=== PATIENT | male | born 1980 | race Caucasian/White ===

== ENCOUNTER 2019-09-28 12:07 | Emergency (ER) | payer BC, SELFPAY ==
[2019-09-28 12:15] VITALS: BP 154/93; PULSE 111; RESP 16; TEMP 37.9; O2SAT 99
--- NOTE | 2019-09-28 12:26 | ED.GENADULT ---
HPI - General Adult General Chief complaint: Ear Stated complaint: Fever/chills/cough/congestion Time Seen by Provider: 09/28/19 12:26 Source: patient and RN notes reviewed History of Present Illness HPI narrative: Patient is a 39-year-old male that presents the urgent care with complaints of fever, chills, nonproductive cough, sinus congestion. Patient states that it started yesterday and he has been using ibuprofen for the fever and body aches. No other acute complaints. No acute distress noted. Patient read the plan of care. Related Data Home Medications Medication Instructions Recorded Confirmed lisinopril 09/28/19 Allergies Allergy/AdvReac Type Severity Reaction Status Date / Time No Known Allergies Allergy Verified 09/28/19 12:15 Review of Systems Review of Systems: Narrative: CONSTITUTIONAL: Reports a fever, chills EYES: Denies visual changes, redness, or discharge. ENT: Reports of sinus congestion CARDIOVASCULAR: Denies chest pain, palpitations, or edema. RESPIRATORY: Reports of cough without wheezing or difficulty breathing GASTROINTESTINAL: Denies abdominal pain, nausea, vomiting, or diarrhea. GENITOURINARY: Denies dysuria or hematuria. SKIN: Denies rash or itching. MUSCULOSKELETAL: Denies back pain, joint pain; reports of body aches NEUROLOGIC: Denies headache, numbness, or weakness. All other systems reviewed are negative, except as documented in HPI. [facility] Family History Family History (Updated 01/23/19 @ 07:45 by DOCTOR UNKNOWN) Father Hypertension Patient's father is in good health Social History Social History Smoking status: Never smoker Alcohol intake: current Comments At the time of my signature, I reviewed and agree with the nursing past medical, surgical, social, and family history. There is no relevant family history pertinent to the patient complaint. Exam Narrative: Exam Narrative: GENERAL: This is a well-nourished, well-developed patient, appears fatigued and flushed HEAD: normocephalic, atraumatic. EYES: PERRL. Sclera clear/white. Vision is grossly intact. EARS: External ears normal, auditory canals clear and without drainage, TMs normal without perforation. Hearing grossly intact. NOSE: External nose normal with no obvious nasal discharge, mild bilateral erythemic nares with clear rhinorrhea THROAT: Mucous membranes moist, posterior pharynx clear. Mild postnasal drainage NECK: Neck supple CARDIOVASCULAR: Regular rate and rhythm without murmurs, gallops, or rubs. RESPIRATORY: Clear to auscultation. Breath sounds equal bilaterally. No wheezes, rales, or rhonchi. SKIN: warm, intact with no suspicious lesions or rash, good texture and turgor. NEURO: awake, alert, and oriented to person, place and time. There were no obvious focal neurologic abnormalities. EXTREMITIES: No clubbing, cyanosis, or edema. Course Vital Signs Vital signs: Vital Signs Temperature 100.3 F H 09/28/19 12:15 Pulse Rate 111 H 09/28/19 12:15 Respiratory Rate 16 09/28/19 12:15 Blood Pressure 154/93 H 09/28/19 12:15 Pulse Oximetry 99 09/28/19 12:15 Temperature 100.3 F H 09/28/19 12:15 Pulse Rate 111 H 09/28/19 12:15 Respiratory Rate 16 09/28/19 12:15 Blood Pressure 154/93 H 09/28/19 12:15 Pulse Oximetry 99 09/28/19 12:15 Reviewed-patient is informed that they may have pre-hypertension or hypertension based on a blood pressure reading in the department. I recommend the patient call the primary care provider listed on their discharge instructions or a physician of their choice this week to arrange follow-up for further evaluation of possible pre-hypertension or hypertension. Medical Decision Making MDM Narrative Medical decision making narrative: Reviewed lab results with the patient. He is aware that he is positive for influenza A. Advised patient to complete Xofluza as prescribed. Make sure to eat and drink with the medication. Treat symptoms with over-the-co
== END 2019-09-28 12:40 | disposition home or self-care (01) ==
PROVIDERS: Emergency Provider Nurse Practitioner Family; PCP Internal Medicine
DX: J10.1 Influenza due to other identified influenza virus with other respiratory manifestations (principal); I10 Essential (primary) hypertension
CPT/HCPCS: 87804; 99213; G0463

== ENCOUNTER 2020-03-22 15:58 | Outpatient (CLI) | payer OTHER, SELFPAY ==
--- NOTE | ~2020-03-22 | XR_ITS ---
EXAMINATION: XR ankle LT min 3V DATE: 03/22/2020 16:12 INDICATION: Left ankle pain TECHNIQUE: Anteroposterior, oblique, mortise, and lateral views of the left ankle were obtained. COMPARISON: None. FINDINGS: Alignment is normal. No fracture. Joint spaces are well maintained. Increased density anterior to th e tibiotalar joint line suggesting possible left ankle joint effusion. The soft tissues are otherwise unremarkable. IMPRESSION: 1. Possible left ankle joint effusion. No osseous abnormality. Reviewed, dictated and finalized at location A.
== END 2020-03-22 15:59 ==
PROVIDERS: PCP Family Medicine; Visit Provider Nurse Practitioner
DX: R52 Pain, unspecified (principal)
CPT/HCPCS: 73610

== ENCOUNTER 2025-03-10 09:54 | Emergency (ER) | payer BC, SELFPAY ==
--- NOTE | ~2025-03-10 | XR_ITS ---
EXAMINATION: XR chest 2V 03/10/2025 10:29 INDICATION: Chest pain and tightness PROCEDURE: 2 view chest COMPARISON: No prior studies for comparison. FINDINGS: The lungs are clear. The cardiomediastinal silhouette is within normal limits. There are no pleural effusions. There is no pneumothorax suspected. IMPRESSION: 1: NO ACUTE CARDIOPULMONARY DISEASE. Reviewed, dictated and finalized at location A.
[2025-03-10 09:55] VITALS: BP 183/102; PULSE 113; RESP 20; TEMP 36.8; O2SAT 98
--- NOTE | 2025-03-10 09:57 | ECG_ITS ---
Test Date: 2025-03-10 10:12:10 Measurements Intervals [place] Rate: 94 P: 47 CA: 154 QRS: 34 QRSD: 115 T: 38 QT: 342 QTc: 428 Interpretive Statements SINUS RHYTHM INTRAVENTRICULAR CONDUCTION DELAY BASELINE ARTIFACT- I, III, AVR, AVL, AVF, V1 BORDERLINE ECG No previous ECG available for comparison Electronically Signed On 03-10-2025 10:14:49 CDT by Rashaun Perez D.O.
[2025-03-10 10:07] VITALS: BP 188/130; PULSE 111; RESP 18; TEMP 36.4; O2SAT 100
[2025-03-10 10:17] LABS: Hematocrit 46.0 % (42.0-52.0); Hemoglobin 16.0 g/dL (14.0-18.0); Immature Granulocyte Percent A 0.5 % (0-0.5); Lymphocytes Absolute Auto 0.82 K/mm3 (0.9-3.2); Mean Corpuscular HGB Conc 34.8 g/dl (32-36); Mean Corpuscular Hemoglobin 30.0 pg (26-34); Mean Corpuscular Volume 86.1 fl (80-100); Nucleated Red Blood Cells Absolute Auto 0.000 K/mm3 (0.0-0.012); Nucleated Red Blood Cells Perc 0.0 % (0.0-0.2); Platelet Count Result 173 k/mm3 (150-375); Red Blood Count 5.34 M/mm3 (4.6-6.20); White Blood Count 4.3 K/mm3 (4.5-10.0)
--- OUTSIDE RECORDS SUMMARY | 2025-03-10 10:17 | XMS_ITS | Clinical Summary ---
Author Organization [facility] [employer] Address [address] [place] [address] Care Team Providers Care Red Hat Engineer Name Role Phone Jamison Mao DO Primary Care Provider [phone] Source Comments [facility] [employer],non-owned Affiliates and Associated Physician Practices is amultiple site organization consisting of ambulatory clinics and hospital sitesin [place], [place], [place] and [place]. This disclosure is being madepursuant to the Care Everywhere program and may not contain all information available regarding this patient. Last updated 18.[facility] [employer] Allergies No known active allergies Medications * Be aware that medications may not be up to date on this document. Alwaysverify current medications with the patient. fluocinolone acetonide (SYNALAR) 0.01 % solution Apply to affected itchy areas on scalp up to twice daily. 30 days supply. 04/11/2017 Active triamcinolone acetonide (KENALOG) 0.1 % cream Prn 02/12/2017 Active clobetasol (TEMOVATE) 0.05 % solution Apply to affected area 2 times daily Apply to affected areas on scalp BID 50 mL 2 11/28/2017 Active ketoconazole (NIZORAL) 2 % shampoo Apply to wet hair, leave on for 3 minutes, then rinse; three times weekly. 30 days supply 120 mL 11 11/28/2017 Active valACYclovir (VALTREX) 1 GM tablet TAKE 2 TABLETS BY MOUTH AT FIRST SIGN OF OUTBREAK. REPEAT DOSE IN 12 HOURS 4 tablet 09/30/2019 Active Active Problems No known active problems Family History Medical History Relation Name Comments Asthma Neg Hx CVA Neg Hx Cancer - Breast Neg Hx Cancer - Other Neg Hx Cancer - Skin, Melanoma Neg Hx Cancer - Skin, Non Melanoma Neg Hx Eczema Neg Hx Hemophilia Neg Hx Psoriasis Neg Hx Social History Tobacco Use Types Packs/Day Years Used Date Smoking Tobacco: Never Smokeless Tobacco: Never Alcohol Use Standard Drinks/Week Comments Yes 0 (1 standard drink = 0.6 oz pur e alcohol) Sex and Gender Information Value Date Recorded Sex Assigned at Not on file Legal Sex Male 9:53 AM CDT Gender Identity Not on file Sexual Orientation Not on file Plan of Treatment Health Maintenance Due Date Last Done Comments LIPID TESTING 1982 HIV SCREENING 1997 HEPATITIS C SCREENING 01/05/2000 DTAP/TDAP/TD VACCINES (1 - Tdap) 2001 HEPATITIS B VACCINE (1 of 3 - 19+ 3-dose series) 2001 HPV VACCINE (1 - 3-dose SCDM series) 2009 COVID-19 VACCINE (1 - 2023-2 5 season) 2024 DEPRESSION SCREENING 08/06/2024 INFLUENZA VACCINE (#1) 2025 ZOSTER VACCINE (1 of 2) 01/10/2032 HIB VACCINE Aged Out No longer eligi ble based on patient's age to complete this topic MENINGOCOCCAL (Group B) VACC INE SHARED DECISION-MAKING Aged Out No longer eligibl e based on patient's age to complete this topic MENINGOCOCCAL GROUPS A/C/Y/W VACCINE Aged Out No longer eligible b ased on patient's age to complete this topic PNEUMOCOCCAL VACCINE Aged Out No long er eligible based on patient's age to complete this topic Insurance [facility] Care Teams Red Hat Engineer Relationship Specialty Start Date End Date Jamison Mao DO PCP - General 11/21/17
[2025-03-10] MEDS: ASPIRIN 81 MG CHEWABLE TABLET 324 MG PO (10:39)
[2025-03-10 10:40] LABS: Alanine Aminotransferase 49 U/L (6-50); Albumin Level 5.0 g/dL (3.5-5.1); Alkaline Phosphatase 74 U/L (38-126); Anion Gap 10 mmol/L (4-12); Aspartate Amino Transferase 69 U/L (17-59); Bilirubin,Total 1.8 mg/dL (0.2-1.3); Blood Urea Nitrogen 8 mg/dL (9-20); Calcium 9.5 mg/dL (8.4-10.2); Carbon Dioxide 25 mmol/L (22-30); Chloride 99 mmol/L (98-107); Estimated CRCL calculation 104 ml/min; Estimated Glomerular Filt Rate > 60; Glucose 98 mg/dL (65-110); Lipase 89 U/L (23-300); Potassium 4.1 mmol/L (3.4-5.0); Sodium 134 mmol/L (137-145); Total Protein 8.7 g/dL (6.3-8.2)
--- OUTSIDE RECORDS SUMMARY | 2025-03-10 10:41 | XMS_ITS | Clinical Summary ---
Author Organization [facility] [employer] Address [address] [place] [address] Care Team Providers Care Solar Installation Helper Name Role Phone Jamison Mao DO Primary Care Provider [phone] Source Comments [facility] [employer],non-owned Affiliates and Associated Physician Practices is amultiple site organization consisting of ambulatory clinics and hospital sitesin [place], [place], [place] and [place]. This disclosure is being madepursuant to the Care Everywhere program and may not contain all information available regarding this patient. Last updated 18.[facility] [employer] Allergies No known active allergies Medications * [...] patient's age to complete this topic Insurance [facility] Care Teams Solar Installation Helper Relationship Specialty Start Date End Date Jamison Mao DO PCP - General 11/21/17
[2025-03-10 10:46] VITALS: BP 159/108; PULSE 89; RESP 18; O2SAT 100
[2025-03-10 10:46] LABS: INR 1.0; Partial Thromboplastin Time 24.7 Seconds (22.3-36.8); Prothrombin Time 13.3 Seconds (11.1-14.7)
[2025-03-10 10:51] LABS: Troponin I < 0.012 ng/mL (0.000-0.034)
--- NOTE | 2025-03-10 11:16 | ED.CHESTPAIN ---
HPI - Chest Pain General Chief Complaint: Chest Pain Stated Complaint: not feeling right cough, chest tight Time Seen by Provider: 03/10/25 10:04 Source: patient Mode of arrival: ambulatory Limitations: no limitations History of Present Illness HPI narrative: 45-year-old with a history of hypertension presents to the ER with the complaints of not feeling well for past several days. He states that his blood pressure is being high. Patient also mentions that he is not very compliant with the meds taking his blood pressure medication however for the past few weeks he states that he has been taking it regularly. He drinks daily. He also states that he wants me knee done at business and he is under stress all the time. Related Data Allergies Allergy/AdvReac Type Severity Reaction Status Date / Time No Known Allergies Allergy Verified 03/10/25 10:10 Review of Systems Review of Systems: All systems reviewed & are unremarkable except as noted in HPI and below Constitutional: Constitutional: Reports no additional constitutional complaints Eyes: Eyes: Reports no additional eye complaints ENT: Reports system reviewed and no additional complaints, except as documented Cardiovascular: Cardiovascular: Reports no additional cardiovascular complaints Respiratory: Respiratory: Reports no additional respiratory complaints Gastrointestinal: Gastrointestinal: Reports as per HPI Musculoskeletal: Musculoskeletal: Reports no additional musculoskeletal complaints Neurologic: Reports system reviewed and no additional complaints, except as documented PMFSH Past Medical History Medical History Hypertension Family History Family History Father Hypertension Patient's father is in good health Social History Social History Smoking status: Never smoker Alcohol intake: current Exam Narrative: GENERAL: Well-appearing, well-nourished, and in no acute distress. HEAD: Normocephalic, atraumatic. EYES: PERRLA and EOMI. ENT: Nares clear, no rhinorrhea or epistaxis. Mucous membranes moist. NECK: Supple. CHEST: Clear to auscultation. No respiratory distress. HEART: Regular rate and rhythm. No murmur heard. Normal peripheral pulses. ABDOMEN: Soft, nontender, nondistended, normal active bowel sounds. EXTREMITIES: Normal range of motion. No edema. SKIN: Warm, dry, no rash. NEURO: No focal deficits. Alert and oriented x3. PSYCH: Normal mood and affect. Course Course Emergency Course: Notified patient about his lab work, EKG and chest x-ray findings. Counseled for alcohol. Advised him to increase lisinopril to 40 mg daily, follow-up with his primary doctor. Vital Signs Vital signs: Vital Signs Temperature 36.8 C 03/10/25 09:55 Pulse Rate 113 H 03/10/25 09:55 Respiratory Rate 20 03/10/25 09:55 Blood Pressure 183/102 H 03/10/25 09:55 Pulse Oximetry 98 03/10/25 09:55 Oxygen Delivery Room Air 03/10/25 09:55 Temperature 36.4 C 03/10/25 10:07 Pulse Rate 89 03/10/25 10:46 Respiratory Rate 18 03/10/25 10:46 Blood Pressure 159/108 H 03/10/25 10:46 Pulse Oximetry 100 03/10/25 10:46 Oxygen Delivery Room Air 03/10/25 10:07 MDM - Chest Pain Differential Diagnosis Differential diagnosis: Likely stable angina, atypical chest pain and chest pain Medical Records Data Attestation: I reviewed the patient's medical records. Lab Data Attestation: I reviewed the patient's lab results. 03/10/25 10:11 03/10/25 10:11 Labs: Lab Results 03/10/25 Range/Units 10:11 WBC 4.3 L (4.5-10.0) K/mm3 RBC 5.34 (4.6-6.20) M/mm3 Hgb 16.0 (14.0-18.0) g/dL Hct 46.0 (42.0-52.0) % MCV 86.1 (80-100) fl MCH 30.0 (26-34) pg MCHC 34.8 (32-36) g/dl RDW 13.5 (11.5-14.5) % Plt Count 173 (150-375) k/mm3 MPV 9.4 (7.4-10.4) fl Immature Gran % (Auto) 0.5 (0-0.5) % Neut % (Auto) 68.5 (45.5-73.1) % Lymph % (Auto) 19.1 (18.3-44.2) % [place] % (Auto) 10.5 H (2.6-8.5) % Eos % (Auto) 0.7 (0-4.4) % Baso % (Auto) 0.7 (0.2-1.2) % Lymph # (Auto) 0.82 L (0.9-3.2) K/mm3 [place] # (Auto) 0.5 (0.1-0.6) K/mm3 Eos # (Auto) 0.0 (0-0.3) K/mm3 Baso # (Auto) 0.0 (0.0-0.1) K/mm3 Abs Immat Gran (auto) 0.02 (0.00-0.031) K/mm3 Absolute Neuts (auto) 3.0 (1.3-6.7) K/mm3 Absolute Nucleated RBC 0.000 (0.0-0.012) K/mm3 Nucleated RBC % 0.0 (0.0-0.2) % PT 13.3 (11.1-14.7) Seconds INR 1.0 APTT 24.7 (22.3-36.8) Seconds Sodium 134 L (137-145) mmol/L Potassium 4.1 (3.4-5.0) mmol/L Chloride 99 (98-107) mmol/L Carbon Dioxide 25 (22-30) mmol/L Anion Gap 10 (4-12) mmol/L BUN 8 L (9-20) mg/dL Creatinine 0.88 (0.7-1.3) mg/dL Estim Creat Clear Calc 104 ml/min Estimated GFR > 60 (59 - ) Glucose 98 (65-110) mg/dL Calcium 9.5 (8.4-10.2) mg/dL Total Bilirubin 1.8 H (0.2-1.3) mg/dL AST 69 H (17-59) U/L ALT 49 (6-50) U/L Alkaline Phosphatase 74 (38-126) U/L Troponin I < 0.012 (0.000-0.034) ng/mL Total Protein 8.7 H (6.3-8.2) g/dL Albumin 5.0 (3.5-5.1) g/dL Lipase 89 (23-300) U/L Imaging Data Attestation: I personally reviewed and interpreted this imaging study as follows: Radiologist's impression: ITS Impressions Chest X-Ray 03/10/25 10:45 IMPRESSION: 1: NO ACUTE CARDIOPULMONARY DISEASE. ECG Data EKG #1: ECG completion date: 03/10/25 ECG completion time: 10:12 EKG Interpretation: normal rate (94), sinus rhythm, no ST changes, NL axis and no acute changes Discharge Plan Discharge Clinical Impression: Atypical chest pain Hypertension Qualifiers: Hypertension type: essential hypertension Qualified Code(s): I10 - Essential (primary) hypertension Patient Disposition: Home Condition: Stable Instructions: Chest Pain (ED), Hypertension (ED) Additional Instructions: Take Lisinopril 40 mg daily , cut down alcohol intake , that will improve your blood pressure , follow with your doctor Patient Language: [place] Prescriptions: No Action lisinopril 20 mg tablet 20 mg PO DAILY Qty: 90 1RF Follow-up/Referrals: Jamison Mao DO [Primary Care Provider] - Time of Disposition: 11:21
[2025-03-10 11:28] VITALS: BP 162/105; PULSE 82; RESP 18; O2SAT 99
== END 2025-03-10 11:29 | disposition home or self-care (01) ==
PROVIDERS: Emergency Provider Family Medicine; PCP Internal Medicine
DX: R07.89 Other chest pain (principal); I10 Essential (primary) hypertension
CPT/HCPCS: 36415; 71046; 80053; 83690; 84484; 85025; 85610; 85730; 93005; 99284; A9270